=== PATIENT | male | born 1960 | race Caucasian/White ===

== ENCOUNTER 2016-08-10 23:08 | Emergency (ER) | payer MEDICARE ==
[2016-08-11] MEDS ORDERED: CLINDAMYCIN 600 MG/D5W RTU 50 ML IV ONE (02:51)
--- NOTE | 2016-08-11 02:55 | ER Document Report ---
ED Hand/Wrist Injury - General Chief Complaint: Hand Pain Stated Complaint: RIGHT HAND INJURY Mode of Arrival: Medic Information source: Patient TRAVEL OUTSIDE OF THE [place] IN LAST 30 DAYS: No - HPI Patient complains to provider of: right hand pain Notes: Patient arrives with complaints of right hand pain, redness and swelling. He states that 3 days ago he noticed some blistering to his right pinky finger. He did some gardening. Today he noticed that his right pinky finger has some open blisters with a larger blister to the dorsum between the fourth and fifth finger has some mild redness to the dorsum of the right hand. No active drainage. 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 No nausea, vomiting, diarrhea. No fever. No chest pain or shortness of breath. He has no other complaints at this time. The patient is a [facility] resident. - Related Data Allergies/Adverse Reactions: No Known Allergies Allergy (Unverified 01/29/15 14:15) Past Medical History - Social History Smoking Status: Current Every Day Smoker Chew tobacco use (# tins/day): No Frequency of alcohol use: Occasional Drug Abuse: None Family History: Reviewed & Not Pertinent Patient has suicidal ideation: No Patient has homicidal ideation: No - Past Medical History Cardiac Medical History: Denies: Hx Heart Attack, Hx Hypertension - HX OF LOW BP Pulmonary Medical History: Denies: Hx Asthma Neurological Medical History: Denies: Hx Cerebrovascular Accident, Hx Seizures Renal/ Medical History: Denies: Hx Peritoneal Dialysis GI Medical History: Reports: Hx Hepatitis - HX OF HEP C. 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 HEAD: normocephalic, atraumatic EYES: conjunctiva pink without discharge, no external redness or swelling. EARS: no external swelling, no external redness NOSE: atraumatic, no external swelling MOUTH/THROAT: mucous membranes moist and pink, posterior pharynx without erythema, swelling, exudate. No trismus or drooling. NECK: soft, supple, full range of motion, no meningismus. CHEST: no distress, lungs clear and equal throughout. No wheezing, rales, rhonchi. CARDIAC: regular rate and rhythm, no murmur, normal capillary refill, normal pulses. No peripheral edema noted. ABDOMEN: Soft, nontender. BACK: full range of motion, no CVA tenderness. EXTREMITIES: Patient has contractures to both upper extremities from prior spinal injury. Patient noted to have an open area under the right fifth finger with a larger serous filled blister at the base of the fourth and fifth fingers on the dorsal aspect of the hand. No redness past the wrist. Normal pulse. Normal sensation. There is minimal tenderness to palpation. There is no palpable abscess noted. No sign of flexor tenosynovitis identified at this time. NEURO: alert and oriented -3, no focal deficits, full range of motion of all extremities. PYSCH: appropriate mood, affect. Patient is cooperative. SKIN: pink, warm, dry, no rash. Course - Re-evaluation Re-evalutation: 08/11/16 04:51 Patient is nontoxic appearing with stable vitals. The patient had some blisters to the right hand that now appear to be infected. He has some mild redness to the dorsum of his hand. There is no redness streaking up the wrist or arm. Patient's been afebrile. X-ray shows no signs of steel myelitis. White blood cell count is normal. Patient has no sign of flexor tenosynovitis. Patient was given a dose of IV clindamycin here in the emergency department. Blood cultures are sent and pending. The patient will be discharged back to [facility] on oral clindamycin with instructions to keep very close eye on this. He should return if the wound worsens in any way, fever, increased redness, increased pain, or for any further concerns. The patient's emergency department workup and current diagnosis were explained to the patient and or family. Follow-up instructions were provided. Medications if prescribed were discussed. Instructions for when to return to the emergency department including specific worrisome symptoms were discussed with the patient and/or family. - Vital Signs Vital signs: Temp Pulse Resp BP Pulse Ox 97.6 F 60 14 111/66 98 08/11/16 03:29 08/11/16 03:29 08/11/16 03:29 08/11/16 03:29 08/11/16 03:29 - Laboratory Result Diagrams: 08/11/16 03:54 08/11/16 03:54 Laboratory results interpreted by me: 08/11/16 08/11/16 03:54 03:54 RDW 14.4 H Eosinophils % 7.4 H Absolute Eosinophils 0.7 H Chloride 108 H - Diagnostic Test Radiology reviewed: Image reviewed, Reports reviewed - Right hand with contractures, no acute findings, no osteomyelitis. Discharge - Discharge Clinical Impression: Cellulitis of hand, right Infected blister of right hand Qualifiers: Encounter type: initial encounter Qualified Code(s): S60.521A - Blister ( nonthermal) of right hand, initial encounter; L08.9 - Local infection of the skin and subcutaneous tissue, unspecified Condition: Stable Disposition: HOME, SELF-CARE Instructions: Cellulitis ([facility]) Additional Instructions: Take medication as prescribed. Soak in warm soapy water 3 times a day. Follow- up in 2 days for reevaluation. Follow-up sooner for increased pain, fever, increased redness, persistent vomiting, or any further concerns. Prescriptions: Clindamycin HCl 300 mg PO QID #40 capsule
[2016-08-11 04:13] LABS: ABSOLUTE EOSINOPHILS # (AUTO) 0.7 10^3/uL (0.0-0.6); ABSOLUTE LYMPHOCYTES (AUTO) 3.4 10^3/uL (0.5-4.7); ABSOLUTE MONOCYTES (AUTO) 1.2 10^3/uL (0.1-1.4); ABSOLUTE NEUT (AUTO) 4.3 10^3/uL (1.7-8.2); BASOPHILS % (AUTO) 0.4 % (0-2); EOSINOPHILS % (AUTO) 7.4 % (0-6); HEMATOCRIT 41.1 % (37.9-51.0); HEMOGLOBIN 13.9 g/dL (13.5-17.0); HGB HCT DIFFERENCE 0.6; MEAN CORPUSCULAR HEMOGLOBIN 29.2 pg (27.0-33.4); MEAN CORPUSCULAR HGB CONC 33.9 g/dL (32.0-36.0); MEAN CORPUSCULAR VOLUME 86 fl (80-97); RED BLOOD COUNT 4.77 10^6/uL (4.35-5.55); RED CELL DISTRIBUTION WIDTH 14.4 % (11.5-14.0); SEGMENTED NEUTROPHILS % (AUTO) 45.2 % (42-78); WHITE BLOOD COUNT 9.6 10^3/uL (4.0-10.5)
[2016-08-11 04:30] LABS: ALANINE AMINOTRANSFERASE 29 U/L (21-72); ALBUMIN 4.1 g/dL (3.5-5.0); ALKALINE PHOSPHATASE 65 U/L (38-126); ANION GAP 12 (5-19); ASPARTATE AMINO TRANSFERASE 23 U/L (17-59); BILIRUBIN,DIRECT 0.3 mg/dL (0.0-0.4); BILIRUBIN,TOTAL 0.6 mg/dL (0.2-1.3); BLOOD UREA NITROGEN 15 mg/dL (7-20); CALCIUM 9.2 mg/dL (8.4-10.2); CARBON DIOXIDE 25 mmol/L (22-30); CHLORIDE 108 mmol/L (98-107); CREATININE RESULT 0.63 mg/dL (0.52-1.25); GLUCOSE 89 mg/dL (75-110); POTASSIUM 4.4 mmol/L (3.6-5.0); SODIUM 144.7 mmol/L (137-145); TOTAL PROTEIN 6.9 g/dL (6.3-8.2)
[2016-08-11 05:09] VITALS: BP 110/61
== END 2016-08-11 05:10 | disposition home or self-care (01) ==
LOC: ER 23:08
DX: S60.521A Blister (nonthermal) of right hand, initial encounter (principal); L08.9 Local infection of the skin and subcutaneous tissue, unspecified; L03.113 Cellulitis of right upper limb; F17.200 Nicotine dependence, unspecified, uncomplicated; X58.XXXA Exposure to other specified factors, initial encounter; Y93.H2 Activity, gardening and landscaping; Y92.007 Garden or yard of unspecified non-institutional (private) residence as the place of occurrence of the external cause; Z86.19 Personal history of other infectious and parasitic diseases
CPT/HCPCS: 36415; 80053; 85025; 87040; 99283

== ENCOUNTER 2016-10-15 19:46 | Emergency (ER) | payer MEDICARE, MEDICAID ==
[2016-10-15 20:00] VITALS: BP 94/64
--- NOTE | 2016-10-15 20:53 | ER Document Report ---
HPI - HPI Pain Level: 3 Context: Patient is a 55-year-old male who presents emergency department with blisters along the lateral aspect of his right hand along the fifth digit. Patient states that he has had blisters on and off for a couple of weeks as he has been working in the garden at his sister's house and also help. States that he did present with this back in July of this year, was treated with clindamycin and had complete resolution of the symptoms. Any fevers, chills. Admits to redness and swelling with blisters on the right side of the hand denies any purulent drainage. 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 - CARDIOVASCULAR Cardiovascular: DENIES: Chest pain - DERM Skin Color: Normal Past Medical History - Social History Smoking Status: Never Smoker Chew tobacco use (# tins/day): No Frequency of alcohol use: None Drug Abuse: None Family History: Reviewed & Not Pertinent Patient has suicidal ideation: No Patient has homicidal ideation: No - Past Medical History Cardiac Medical History: Denies: Hx Heart Attack, Hx Hypertension - HX OF LOW BP Pulmonary Medical History: Denies: Hx Asthma Neurological Medical History: Denies: Hx Cerebrovascular Accident, Hx Seizures Renal/ Medical History: Denies: Hx Peritoneal Dialysis GI Medical History: Reports: Hx Hepatitis - HX OF HEP C. 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 IN LAST 30 DAYS: No - RESPIRATORY O2 Sat by Pulse Oximetry: 97 - CARDIOVASCULAR Pulses: Normal: Radial Notes: cap refill < 2 seconds - MUSCULOSKELETAL/EXTREMETIES Musculoskeletal/Extremeties: Non-Tender, Edema - NEURO Level of Consciousness: Awake, Alert, Appropriate Motor/Sensory: No Motor Deficit, No Sensory Deficit - DERM Integumentary: Warm, Dry, Rash - bullous lesions noted along the lateral aspect and top of the 4tha nd 5th digits, on top of erythemaouts base with edema. rash free and pain free along neck, back and arm b/l Course - Re-evaluation Re-evalutation: 10/15/16 21:41 Is a 55-year-old male who is hemodynamic stable, no acute distress and afebrile. 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 Will send home on bacitracin, wet to dry dressings and Keflex. Discussed with patient to start using gloves in the garden and can follow-up with primary care. - Vital Signs Vital signs: Temp Pulse Resp BP Pulse Ox 98.4 F 108 H 16 94/64 L 97 10/15/16 19:55 10/15/16 19:55 10/15/16 19:55 10/15/16 19:55 10/15/16 19:55 Discharge - Discharge Clinical Impression: Cellulitis, Contact dermatitis Condition: Good Disposition: HOME, SELF-CARE Instructions: Dressing Instructions for Open Wounds ([facility]) Additional Instructions: Wet to dry dressings at least daily change as needed Follow-up with your primary care physician in 3-5 days to evaluate for wound healing. Prescriptions: Bacitracin Zinc [Bacitracin Oint 15 gm] 1 applic TP DAILY #1 tube Cephalexin Monohydrate [Keflex 500 mg Capsule] 500 mg PO QID #20 capsule
[2016-10-15] MEDS ORDERED: CEPHALEXIN 500 MG CAPSULE PO ONE (21:05)
[2016-10-15] MEDS ORDERED: ACETAMINOPHEN 325 MG TABLET PO ONE (21:05)
== END 2016-10-15 22:04 | disposition home or self-care (01) ==
LOC: ER 19:46
DX: L25.9 Unspecified contact dermatitis, unspecified cause (principal); L03.90 Cellulitis, unspecified
CPT/HCPCS: 99283; 87070; 87205; 87075; 87077; 87250; 87186; A9270 ×2